=== PATIENT | male | born 1980 | race Two or more races ===

== ENCOUNTER 2025-02-14 18:03 | Emergency (ER) | payer OTHER ==
[~2025-02-14] VITALS: Ht 154.9 cm; Wt 103.8 kg
--- NOTE | 2025-02-14 18:15 | ECG ---
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
--- NOTE | 2025-02-14 18:23 | ED.PDOC ---
SOB-HPI HPI Comments HPI: Poor Historian. 44-year-old male presents to the emergency department from urgent Care for respiratory complaints. At urgent care patient was found to be hypoxic requiring supplemental oxygen. Patient was given albuterol and Xopenex treatment. She was given Solu-Medrol. Patient was sent to the ED for further evaluation stabilization. They checked him for COVID and influenza which were negative. Most recent Tylenol intake was this morning 8:00 a.m. Sepsis protocol was initiated right away. Past Medical History: Chronic back pain, abdominal hernia Past Surgical History: Colon surgery REVIEW OF SYSTEMS: CONSTITUTIONAL: Denies acute: diaphoresis, HEAD: Denies acute: headache, photophobia Eyes: Denies acute: Double vision, vision loss, eye pain, eye discharge. EARS: Denies acute: tinnitus, hearing loss, ear discharge, ear pain, THROAT: Denies acute: sore throat, swelling, difficulty swallowing , pain with swallowing, change in voice. NECK: Denies acute: neck pain, neck swelling, stiff neck. HEART: Denies acute : chest pain, palpitations, LUNGS: Denies acute: wheezing, hemoptysis ABDOMEN: Denies acute: abdominal pain, Nausea, Vomiting, diarrhea, melena , hematemesis, hematochezia SKIN: Denies acute: rash, redness, lesions, itchiness. EXTREMITIES: Denies acute: calf pain, numbness, tingling, weakness, denies pain in extremity. Denies acute: Low back pain. Neuro: Denies acute: focal neurological deficit, motor or sensory focal neurological deficit, tremors, seizure like activity, confusion, dizziness, change in mental status, loss of bowel or bladder function, cauda equina like symptoms. : Denies acute: dysuria, hematuria, flank pain, increase in urinary frequency. PSYCH: Denies acute: hallucination, suicidal ideation, homicidal ideation. PHYSICAL EXAM: General: ---nqwy-ny-nqixajgf-----acute distress, awake and alert. Head: normocephalic, atraumatic. Neck: supple, trachea is midline, no swelling. Throat: Normal phonation. Eyes:, no erythema, no purulent discharge, no proptosis, no icterus. Heart: regular tachycardia, no significant murmur appreciated. Lungs: Iuwn-xz-ydkgudis apparent respiratory distress, patient arrives from urgent care requiring at least 5 L supplemental oxygen. Able to speak in full sentences. No wheezing, no rhonchi, no crackles. No stridors Clear to auscultation bilaterally. Abdomen: non tender to palpation, non distended, soft, no guarding, no rebound, + bowel sounds. Neuro: Awake, Alert, oriented to name, self, situation, follows commands GCS=15. Speech is normal. Skin: no petechia, no purpura, no cyanosis, slightly-pale, not jaundice. Lower extremities: --no - Pitting edema no deformity, no focal swelling, no calf TTP. Makes eye contact. moves all four extremities. Face: no apparent facial droop. No nuchal rigidity, Kernig's sign, Brudzinski's sign, no meningeal signs. ED COURSE: Chief Complaint: Shortness of Breath Time Seen by MD: 18:08 Reviewed notes: Nurses Notes, Allergies Information Source: Patient Was a procedure done? Was a procedure done?: No Differential Dx Differential Diagnosis: Other (DDx include ACS, unstable angina, anxiety, PE, pneumothroax, neoplasm, cardiac ischemia, COPD, asthma, CHF, pleural effusion, tobacco abuse, pneumonia, hypoxia, hypercapnia, anemia., infection/sepsis., pulmonary edema. Asthma, Cardiac tamponade, infection.) X-Ray, Labs, Meds, VS Vital Signs Date Time Temp Pulse Resp B/P (MAP) Pulse Ox O2 Delivery O2 Flow Rate FiO2 02/15/25 00:00 78 16 117/81 (93) 96 02/14/25 22:00 98.7 95 15 102/58 (73) 95 98.7 02/14/25 20:31 119 94 02/14/25 20:09 98.7 02/14/25 20:00 94 02/14/25 19:30 100.4 104 16 115/65 (82) 93 100.4 02/14/25 19:30 104 16 93 Nasal Cannula* 5 40 02/14/25 19:09 100.9 02/14/25 18:40 22 96 Nasal Cannula* 5 40 02/14/25 18:40 96 Nasal Cannula* 5 40 4/16/25 18:38 100.9 115 20 119/77 (91) 93 100.9 02/14/25 18:21 100.8 117 22 91/50 (64) 93 100.8 02/14/25 18:20 22 93 Nasal Cannula* 5 40 02/14/25 18:14 124 Lab Test 02/14/25 23:23 02/14/25 23:00 02/14/25 21:30 02/14/25 19:37 Range/Units Urine Color Colorless Yellow Urine Clarity Clear Clear Urine pH 7.0 5.0-9.0 Urine Specific Edelstein 1.003 1.001-1.035 Urine Protein Negative Negative Urine Ketones Negative Negative Urine Blood Negative Negative /uL Urine Nitrite Negative Negative Urine Bilirubin Negative Negative Urine Urobilinogen Normal Negative mg/dL Urine Leukocyte Esterase Negative Negative /uL Urine RBC None seen 0 - 3 /hpf Urine Microscopic WBC < 1 0-3 /HPF Urine Squamous Epithelial Cells None seen <5 /hpf Urine Bacteria None seen None Seen /hpf Urine Glucose Normal Normal mg/dL Influenza Type A Antigen Negative Negative Influenza Type B Antigen Negative Negative SARS-CoV-2 Antigen (Rapid) Negative NEGATIVE Troponin I High Sensitivity < 3 L < 3 L </=54 ng/L Test 02/14/25 18:49 02/14/25 18:34 Range/Units Blood Gas Specimen Type Arterial Blood Gas Sample Site Right radial Blood Gas Patient Temperature 37.0 Arterial Blood Date Drawn [id number] Arterial Blood pH 7.494 H 7.350-7.450 Arterial Blood Partial Pressure CO2 29.4 L 35.0-48.0 mmHg Arterial Blood Partial Pressure O2 74.6 L 83.0-108.0 mmHg Arterial Blood HCO3 22.1 21.0-28.0 mmol/L Arterial Blood Oxygen Saturation 95.4 94.0-98.0 % Arterial Blood Base Excess 0.1 -2.0-3.0 mmol/L Arterial Blood Oxyhemoglobin 94.4 94.0-98.0 % Arterial Blood Carboxyhemoglobin 0.5 0.5-1.5 % Arterial Blood Methemoglobin 0.6 0.0-1.5 % Adams Test Modified Blood Gas Total Hemoglobin 15.40 13.5-17.5 g/dL Blood Gas Liter Flow 5.00 Blood Gas Modality Nasal cannula FiO2 % 40.0 White Blood Count 11.0 H 4.4-10.8 10^3/uL Red Blood Count 5.37 4.5-5.90 10^6/uL Hemoglobin 15.7 13.5-17.5 g/dL Hematocrit 46.6 41.0-53.0 % Mean Corpuscular Volume 86.7 80.0-100.0 fL Mean Corpuscular Hemoglobin 29.3 28.0-32.0 pg Mean Corpuscular Hemoglobin Concent 33.8 32.0-36.0 g/dL Red Cell Distribution Width 13.0 11.8-14.3 % Platelet Count 325 140-450 10^3/uL Mean Platelet Volume 7.3 6.9-10.8 fL Neutrophils (%) (Auto) 82.2 H 37.0-80.0 % Lymphocytes (%) (Auto) 8.0 L 10.0-50.0 % Monocytes (%) (Auto) 6.0 0.0-12.0 % Eosinophils (%) (Auto) 3.6 0.0-7.0 % Basophils (%) (Auto) 0.2 0.0-2.0 % Neutrophils # (Auto) 9.1 H 1.6-8.6 10 ^3/uL Lymphocytes # (Auto) 0.9 0.4-5.4 10 ^3/uL Monocytes # (Auto) 0.7 0-1.3 10 ^3/uL Eosinophils # (Auto) 0.4 0-0.8 10 ^3/uL Basophils # (Auto) 0 0-0.2 10 ^3/uL Nucleated Red Blood Cells 0.2 % Erythrocyte Sedimentation Rate 62 H 0-20 mm/hr D-Dimer, Quantitative 0.63 H 0.0-0.49 mg/L FEU Sodium Level 134 L 136-145 mmol/L Potassium Level 3.6 3.5-5.1 mmol/L Chloride Level 97 L 98-107 mmol/L Carbon Dioxide Level 25 20-31 mmol/L Anion Gap 12 5-15 Blood Urea Nitrogen 8 L 9-23 mg/dL Creatinine 1.04 0.700-1.30 mg/dL Glomerular Filtration Rate Calc 92 >90 mL/min BUN/Creatinine Ratio 7.7 L 10.0-20.0 Serum Glucose 100 74-106 mg/dL Lactic Acid Level 2.0 0.4-2.0 mmol/L Calcium Level 9.6 8.7-10.4 mg/dL Magnesium Level 2.0 1.6-2.6 mg/dL Total Bilirubin 0.5 0.2-1.0 mg/dL Aspartate Amino Transferase (AST) 26 13-40 U/L Alanine Aminotransferase (ALT) 19 7-40 U/L Alkaline Phosphatase 92 46-116 U/L Troponin I High Sensitivity < 3 L </=54 ng/L C-Reactive Protein High Sensitivity 15.16 H <1.0 mg/dL B-Type Natriuretic Peptide 2.87 0-100 pg/mL Total Protein 8.4 H 5.7-8.2 g/dL Albumin 4.9 H 3.2-4.8 g/dL Monoscreen Negative Current Medications Medications (Trade) Dose Ordered Sig/Cici Route Start Time Stop Time Status Last Admin Albuterol (Ventolin Medneb) 2.5 mg ONCE ONCE NEB 02/14/25 18:15 02/14/25 18:16 DC 02/14/25 18:35 Ipratropium [place] (Atrovent Medneb) 1 mg ONCE ONCE NEB 02/14/25 18:15 02/14/25 18:16 DC 02/14/25 18:35 Sodium Chloride 1,000 ml @ 1,000 mls/hr Q1H ONCE IV 02/14/25 18:15 02/14/25 19:14 DC 02/14/25 18:40 Ceftriaxone Sodium 50 ml @ 100 mls/hr ONCE ONCE IV 02/14/25 18:15 02/14/25 18:44 DC 02/14/25 18:55 Acetaminophen (Tylenol Tablet) 650 mg ONCE ONCE PO 02/14/25 18:30 02/14/25 18:31 DC 02/14/25 19:09 Albuterol (Ventolin Medneb) 2.5 mg ONCE ONCE NEB 02/15/25 00:00 02/15/25 00:22 DC 02/15/25 00:24 Ipratropium [place] (Atrovent Medneb) 0.5 mg ONCE ONCE NEB 02/15/25 00:00 02/15/25 00:22 DC 02/15/25 00:24 Dexamethasone Sodium Phosphate (Decadron Injection) 10 mg ONCE ONCE IV 02/15/25 00:00 02/15/25 00:22 DC 02/15/25 00:[address] [address] Ph: [phone] DIAGNOSTIC IMAGING Diagnostic Imaging Report : [id number] Signed PATIENT: NURA TAYLOR ACCT: [id number] UNIT: [id number] : 1980 LOC: ER ROOM / BED: / AGE / SEX: 44 / M ADM STATUS: REG ER SERVICE 13 ORDERING PHYSICIAN: SHAD LEE DO PROCEDURE(s): CTACH - CT ANGIO CHEST CONTRAST REASON: sob ORDER NUMBER(s): [id number], ACCESSION NUMBER(s): [id number] INDICATION: sob COMPARISON: None TECHNIQUE: Multidetector CTA of the chest was performed of the chest with 100 cc of intravenous contrast. PULMONARY ANGIOGRAPHY PROTOCOL was utilized using a bolus-tracking technique centered on the main pulmonary artery. Axial, coronal and sagittal multiplanar and MIP reformats were performed. Radiation Dose : 1. Chest: CTDI volume is 29.6 mGy. Dose-length product is 1119.7 mGy*cm The dose indicators for CT are the volume Computed Tomography (CT) Dose Index (CTDIvol) and the Dose Length Product (DLP), and are measured in units of mGy and mGy-cm, respectively. These indicators are not patient dose, but values generated from the CT scanner acquisition factors. The report includes radiation exposure data for exposures received during this examination. Study was done after administration of 66 mL of Omnipaque 350 with 34 ML wasted Findings: There is a dense consolidate which is developed in the left lower lobe. Thyroid is unremarkable. Large mediastinal lymph nodes largest is probably in the AP window measuring 2.43 1.1 8 cm. There is no evidence for pulmonary embolus there is hilar adenopathy heart is still within normal limits for size. There is no hiatal hernia spleen is enlarged at 12.16 cm. Pancreas is unremarkable. Visualized kidneys demonstrate a small stone in the interpolar region of the right kidney measuring about 3 mm in size. Gall bladder is unremarkable. Liver appears to be unremarkable. IMPRESSION: Left basilar pneumonia. Tiny stone seen in the interpolar region of the right kidney.There is hilar adenopathy And mediastinal adenopath but no pulmonary embolus. ATED BY: KEYSHAWN LEIJA MD DICTATED DATE/TIME: 02/14/252357 SIGNED BY: KEYSHAWN LEIJA MD SIGNED DATE/TIME: 02/14/252357 CC: Time of 1ST Reevaluation: 21:16 (The case was discussed with the admitting team (HPI, physical exam, labs and diagnostic tests that were available at the time of disposition, ED course, treatment plan) on the phone. They agreed to admit the patient to their service and assume care of this patient from this point alexander donohue. --- Freddy. CTA angiogram of the chest is still pending.) Reevaluation 1ST: Improved Patient Education/Counseling: Diagnosis, Treatment Family Education/Counseling: Other Comments Patient presented with the above HPI.--acute respiratory distress and fever----workup was initiated. patient was found with the above mentioned diagnosis. the following medications were ordered: please refer to order lists of meds and tests obtained by myself Dr. Lee. Patient ED course and VS have been stabilized. Patient has been reassessed in the ED and remained in a stable condition. Pertinent incidental findings were discussed with the patient and/or family. Patient/family voices understanding and is agreeable with plan. Patient has been observed in the ED adequate length of time to insure improvement/stability. Escalation of care considered: Consideration of escalation to observation or admission Sepsis protocol was initiated. Patient was ADMITTED to the medicine team for further evaluation and treatment of their presentation. All the reports of any imaging studies that were ordered by myself were reviewed by myself. Departure 1 Departure Time of Disposition: 18:35 Impression: Primary Impression: Acute respiratory failure Additional Impressions: Fever Pneumonia Adenopathy Hypoxemia Disposition: ADMITTED INPATIENT Admit to: Tele Condition: Guarded e-Prescriptions Levofloxacin Hemihydrate (LEVAQUIN 500 MG) 500 Mg Tab 1 TAB PO DAILY for 7 Days, #7 TAB 0 Refills Prov: JUAN PABLO RAMOS MD 02/15/25 Discharged With: Self Critical Care Note Critical Care Time?: Yes (45 min-critical care time only) Heart Score Heart Score: Heart Score Response (Comments) Value History Slightly Suspicious 0 EKG Normal 0 Age <45 0 Risk Factors No known risk factors 0 Troponin Normal limit 0 Total 0 ROSA,SHAD J DO Feb 14, 2025 18:23
[2025-02-14] MEDS: IPRATROPIUM BROM 0.5 MG/2.5ML INH SOL NEB ONE (18:35)
[2025-02-14] MEDS: ALBUTEROL SULF 2.5 MG/0.5ML(0.5%) NEB SOLN NEB ONE (18:35)
[2025-02-14] MEDS: SODIUM CHLORIDE 0.9% 1,000 ML IV ONE (18:40)
[2025-02-14 18:53] LABS: Base Excess 0.1 mmol/L (-2.0-3.0)
[2025-02-14] MEDS: cefTRIAXone 1GM/50ML D5W 50 ML IV ONE (18:55)
--- NOTE | 2025-02-14 19:01 | DVH ---
CHEST RADIOGRAPH Indication: fever, sob, Technique: Single frontal view of the chest was obtained Comparison: None FINDINGS: Lines and Tubes: None Lungs: Possible areas of atelectasis in the lung bases with elevation of the diaphragms Pleura: No effusion. No pneumothorax. Cardiomediastinal contours: Unremarkable Bones: No acute osseous abnormality. IMPRESSION: 1. Bibasilar areas of atelectasis with elevation of both diaphragms.
[2025-02-14 19:02] LABS: Basophils # (auto) 0 10 ^3/uL (0-0.2); Basophils % (auto) 0.2 % (0.0-2.0); Eosinophils # (auto) 0.4 10 ^3/uL (0-0.8); Eosinophils % (auto) 3.6 % (0.0-7.0); Hematocrit 46.6 % (41.0-53.0); Hemoglobin 15.7 g/dL (13.5-17.5); Lymphocytes # (auto) 0.9 10 ^3/uL (0.4-5.4); Mean Corpuscular Hemoglobin 29.3 pg (28.0-32.0); Mean Corpuscular Hgb Conc. 33.8 g/dL (32.0-36.0); Mean Corpuscular Volume 86.7 fL (80.0-100.0); Monocytes # (auto) 0.7 10 ^3/uL (0-1.3); Neutrophils # (auto) 9.1 10 ^3/uL (1.6-8.6); Neutrophils % (auto) 82.2 % (37.0-80.0); Nucleated Red Blood Cells % 0.2 %; Platelet Count (auto) 325 10^3/uL (140-450); Red Blood Cells 5.37 10^6/uL (4.5-5.90)
[2025-02-14] MEDS: ACETAMINOPHEN 325 MG TAB PO ONE (19:09)
[2025-02-14 19:28] LABS: Alanine Aminotransferase 19 U/L (7-40); Alkaline Phosphatase 92 U/L (46-116); Anion Gap 12 (5-15); Aspartate Aminotransferase 26 U/L (13-40); BUN/Creatinine Ratio 7.7 (10.0-20.0); Bilirubin, Total 0.5 mg/dL (0.2-1.0); Calcium 9.6 mg/dL (8.7-10.4); Carbon Dioxide 25 mmol/L (20-31); Glucose 100 mg/dL (74-106); Potassium 3.6 mmol/L (3.5-5.1)
[2025-02-14 19:30] VITALS: PULSE 104; RESP 16; O2SAT 93
[2025-02-14 19:35] LABS: Erythrocyte Sedimentation Rate 62 mm/hr (0-20)
[2025-02-14 19:40] LABS: Blood Urea Nitrogen 8 mg/dL (9-23); Chloride 97 mmol/L (98-107); Sodium 134 mmol/L (136-145); Total Protein 8.4 g/dL (5.7-8.2)
[2025-02-14 19:41] LABS: Albumin 4.9 g/dL (3.2-4.8); CRP High Sensitivity 15.16 mg/dL (<1.0)
--- NOTE | 2025-02-14 20:31 | RESUS ---
CODE ASSIST ASSESSSMENT Initial Information Code Assist Date: Feb 14, 2025 Code Assist Time: 18:56 Location of Arrest: Provider Name KURT DAWN EMBEDDED CASE MANAGER Time Notified: 18:56 Crash Cart Opened and Supplies: No Situation Staff concerned/worried, speci: RR >28, Other Situation comment: At urgent care patient was found to be hypoxic requiring supplemental oxygen. Patient reported to be tripoding to breathe Background Background: HR 117, RR 32 Assessment Temperature (Fahrenheit): 100.9 Blood Pressure Systolic: 119 Blood Pressure Diastolic: 77 Respiratory Rate: 22 O2 Sat by Pulse Oximetry: 94 Recommendations/Interventions Medications and Responses : ADULT Medications Given: solumedrol Medication Comment: given solumedrol 125mg IM, xopenex and albuterol treatment given without relief of sob Heart Rate: 119 Procedures: O2 Mask/NC (4liters/nc) Outcome Outcome: Other Follow up Report Follow up Report TRANSFERRED TO ER FOR EVALUATION. Team Members Team Members MATTIE ORTIZ RN, [address] DEPUTY CLERK, SHAWN [address] DEPUTY CLERK, Mecca Marin RRT Feb 14, 2025 20:31
[2025-02-14] MEDS ORDERED: DULO1CAP4 PO (22:19)
[2025-02-14] MEDS ORDERED: OXY5T PO (22:19)
[2025-02-14] MEDS ORDERED: PREG150C63 PO (22:19)
[2025-02-14] MEDS ORDERED: METH-1182 PO (22:19)
[2025-02-14] MEDS: IOHEXOL 350 MG/ML 100ML IJ ONE (22:49)
[2025-02-14 23:31] LABS: Urine Bacteria None Seen /hpf (None Seen)
[2025-02-14 23:47] LABS: COVID19 ANTIGEN SOFIA FIA NEGATIVE (NEGATIVE); Rapid Influenza A Negative (Negative); Rapid Influenza B Negative (Negative)
[2025-02-14 23:47] LABS: Urine Blood Negative /uL (Negative); Urine Clarity Clear (Clear); Urine Color Colorless (Yellow); Urine Protein, UAD Negative (Negative); Urine Specific Gravity 1.003 (1.001-1.035); Urine Squamous Epithelial Cell None Seen /hpf (<5); Urine Urobilinogen Normal (Negative)
[2025-02-14 23:50] LABS: Urine WBC < 1 /HPF (0-3)
--- NOTE | 2025-02-15 | DVH ---
INDICATION: sob COMPARISON: None TECHNIQUE: Multidetector CTA of the chest was performed of the chest with 100 cc of intravenous contr ast. PULMONARY ANGIOGRAPHY PROTOCOL was utilized using a bolus-tracking technique centered on the joesph n pulmonary artery. Axial, coronal and sagittal multiplanar and MIP reformats were performed. Radiation Dose : 1. Chest: CTDI volume is 29.6 mGy. Dose-length product is 1119.7 mGy*cm The dose indicators for CT are the volume Computed Tomography (CT) Dose Index (CTDIvol) and the Dose Length Product (DLP), and are measured in units of mGy and mGy-cm, respectively. These indicators are not patient dose, but values generated from the CT scanner acquisition factors. The report includes radiation exposure data for exposures received during this examination. Study was done after administration of 66 mL of Omnipaque 350 with 34 ML wasted Findings: There is a dense consolidate which is developed in the left lower lobe. Thyroid is unremarkable. Large mediastinal lymph nodes largest is probably in the AP window measuring 2.43 1.1 8 cm. There is no evidence for pulmonary embolus there is hilar adenopathy heart is still within normal limits for s ize. There is no hiatal hernia spleen is enlarged at 12.16 cm. Pancreas is unremarkable. Visualized kidneys demonstrate a small stone in the interpolar region of th e right kidney measuring about 3 mm in size. Gall bladder is unremarkable. Liver appears to be unrem arkable. IMPRESSION: Left basilar pneumonia. Tiny stone seen in the interpolar region of the right kidney.There is hilar adenopathy And mediastinal adenopath but no pulmonary embolus.
[2025-02-15] MEDS: IPRATROPIUM BROM 0.5 MG/2.5ML INH SOL NEB ONE (00:24)
[2025-02-15] MEDS: ALBUTEROL SULF 2.5 MG/0.5ML(0.5%) NEB SOLN NEB ONE (00:24)
[2025-02-15] MEDS: DexAMETHasone SOD PHOS 10MG/1ML VIAL INJ IV ONE (00:27)
[2025-02-15] MEDS: levoFLOXacin 500 MG TAB PO ONE (01:45)
[2025-02-15] MEDS ORDERED: LEVO500T91 PO (01:45)
[2025-02-15 04:00] VITALS: BP 105/52; PULSE 77; RESP 18; TEMP 98.1; O2SAT 94
--- NOTE | 2025-02-16 22:02 | DVHDS2 ---
Physician Discharge Progress N Final Diagnosis: Pneumonia Hypoxia Operations or Procedures: Operations or Procedures none Other Interventions Other Interventions CT, lab results, CXR, CLT, EKG, COVID, Influenza Consultations: Consultations none Commentary: Commentary 44 y.o. male arrived to the hospital c/o SOB for one day. Patient tested negative for COVID and influenza. CT showed no pulmonary emboli but suggested left lobe PNA. Patient was given Rocefin, RT and oxygen in the ER. His VS remained stable in the ER. His ABG showed mild hypoxia. Home oxygen was delivered to his ER bed and he was discharged home with instructions to continue Levaquin for a week and f/u with his PMD in 3 days. Condition on Discharge: Stable Disposition: Home SNF Discharge Will this Physician continue t: No Discharge Instructions: Diet: Regular Activity: No Restrictions, As Tolerated Follow Up/Referral: PMD in 2 days Medications: Levaquin 500 mg PO daily for 7 days Home oxygen as instructed Follow Up Care: Discharge Statement: "Patient was advised to return to the ER or call 911 if any headaches, dizziness, shortness of breath, chest pain, abdominal pain, bleeding, fevers, or worsening of medical condition. Patient was counseled about treatment plan, medications, possible side effects, patientverbalized understanding. All questions were answered to the best of my ability. This discharge took greater then 30 minutes in planning, reviewing documentation, counseling the patient, and discussing with other team members." JUAN PABLO RAMOS MD Feb 16, 2025 22:02
== END 2025-02-15 04:44 | disposition home or self-care (01) ==
LOC: ER 18:03
DX: J96.01 Acute respiratory failure with hypoxia (principal); J18.9 Pneumonia, unspecified organism; R59.9 Enlarged lymph nodes, unspecified; Z20.822 Contact with and (suspected) exposure to COVID-19; Z90.49 Acquired absence of other specified parts of digestive tract; Z98.890 Other specified postprocedural states; Z79.899 Other long term (current) drug therapy
CPT/HCPCS: 36415; 36600; 71045; 71275; 80053; 81001; 82805; 83605; 83735; 83880; 84484; 85025; 85379; 85652; 86141; 86308; 86850; 86900; 86901; 87040; 87426; 87804; 93005; 94640; 96365; 96375; 99291; J0696; J1100; J7030; Q9967; 92950